=== PATIENT | male | born 1965 | race Caucasian/White ===

== ENCOUNTER 2023-08-13 12:40 | Observation (INO) | payer BC ==
--- NOTE | 2023-08-13 12:59 | ED ---
Chest Pain HPI - General Source: patient, RN notes reviewed Mode of arrival: wheelchair Limitations: no limitations - History of Present Illness MD Complaint: chest pain <Erinn Stock - Last Filed: 08/13/23 12:57> <Samm Kimble - Last Filed: 08/13/23 17:03> - General Chief Complaint: Chest Pain Stated Complaint: Chest Pains Time Seen by Provider: 08/13/23 12:57 - History of Present Illness Initial Comments: Quick Note: This is a 57-year-old male who presents to the emergency department for chest pain. States that it started 5 days ago. Pain is in the right lower side of his chest. He has associated shortness of breath and swelling in his extremities. His father had a heart attack when he was 38. Patient states that he has had cardiac catheterizations and told that they were normal. Denies any history of CHF. He does report a history of cirrhosis. (Erinn Stock) - Related Data Allergies Allergy/AdvReac Type Severity Reaction Status Date / Time No Known Allergies Allergy Verified 08/13/23 12:47 Review of Systems ROS Other: All systems not noted in ROS Statement are negative. <Erinn Stock - Last Filed: 08/13/23 12:57> ROS Other: All systems not noted in ROS Statement are negative. <Samm Kimble - Last Filed: 08/13/23 17:03> ROS Statement: Those systems with pertinent positive or pertinent negative responses have been documented in the HPI. Past Medical History Past Medical History: Coronary Artery Disease (CAD), Heart Failure, Hyperlipidemia, Hypertension Additional Past Medical History / Comment(s): Liver History of Any Multi-Drug Resistant Organisms: None Reported Past Surgical History: Joint Replacement, Orthopedic Surgery Past Psychological History: No Psychological Hx Reported Smoking Status: Current every day smoker Past Alcohol Use History: Occasional Past Drug Use History: None Reported <Erinn Stock - Last Filed: 08/13/23 12:57> General Exam Limitations: no limitations <Erinn Stock - Last Filed: 08/13/23 12:57> General appearance: alert, in no apparent distress Head exam: Present: atraumatic, normocephalic Eye exam: Present: normal appearance, PERRL ENT exam: Present: normal exam Neck exam: Present: normal inspection. Absent: tenderness, meningismus Respiratory exam: Present: rhonchi. Absent: respiratory distress Cardiovascular Exam: Present: normal rhythm, tachycardia GI/Abdominal exam: Present: distended, tenderness Extremities exam: Present: pedal edema, calf tenderness Neurological exam: Present: alert, oriented X3, CN II-XII intact. Absent: motor sensory deficit Psychiatric exam: Present: normal affect, normal mood Skin exam: Present: warm, dry, intact. Absent: cyanosis, diaphoretic <Samm Kimble - Last Filed: 08/13/23 17:03> - General Exam Comments Initial Comments: Visual Physical Exam Vital signs reviewed General: Well-appearing, nontoxic, no acute distress. Head: Normocephalic, atraumatic Eyes: PERRLA, EOMI ENT: Airway patent Chest: Nonlabored breathing Skin: No visual rash, normal skin tone Neuro: Alert and oriented 3 Musculoskeletal: No gross abnormalities (Erinn Stock) Course Vital Signs 08/13/23 08/13/23 12:45 14:24 Temperature 98.1 F Pulse Rate 104 H Respiratory 22 18 Rate Blood Pressure 152/88 149/84 O2 Sat by Pulse 99 Oximetry Chest Pain MDM <Erinn Stock - Last Filed: 08/13/23 12:57> <Samm Kimble - Last Filed: 08/13/23 17:03> - MDM I performed the QuickNote portion of this chart. Signed Erinn Stock PA-C. (Erinn Stock) Was pt. sent in by a medical professional or institution ([facility], DRAIN[facility]ER, urgent care, hospital, or fci...) When possible be specific @ -No Did you speak to anyone other than the patient for history (EMS, parent, family, police, friend...)? What history was obtained from this source @ -No Did you review nursing and triage notes (agree or disagree)? Why? @ -I reviewed and agree with nursing and triage notes Were old charts reviewed (outside hosp., previous admission, EMS record, old EKG, old radiological studies, urgent care reports/EKG's, fci records)? Report findings @ -No old charts were reviewed Differential chest. EKG interpreted by me (3pts min.). @ -EKG: Sinus rhythm rate of 98, DE interval 136, QRS duration 102, QTc [address] segment elevation. X-rays interpreted by me (1pt min.). @ -Chest x-ray negative for acute cardiopulmonary findings. CT interpreted by me (1pt min.). @ -CT chest negative for PE, CT abdomen showing ascites and distended gallbladder U/S interpreted by me (1pt. min.). @ -Sound of the gallbladder has a positive Bermudez sign and distended gallbladder without stones. ReSound of the lower extremities is negative for DVT. What testing was considered but not performed or refused? (CT, X-rays, U/S, labs)? Why? @ -None What meds were considered but not given or refused? Why? @ -None Did you discuss the management of the patient with other professionals (professionals i.e. , PA, DRAINLAYER, lab, RT, psych nurse, high school social studies teacher, health sciences program coordinator, teacher, security officers and guards, rn case manager)? Give summary @ -No Was smoking cessation discussed for >3mins.? @ -No Was critical care preformed (if so, how long)? @ -No Were there social determinants of health that impacted care today? How? (Homelessness, low income, unemployed, alcoholism, drug addiction, transportation, low edu. Level, literacy, decrease access to med. care, assisted, rehab)? @ -No Was there de-escalation of care discussed even if they declined (Discuss DNR or withdrawal of care, Hospice)? DNR status @ -No What co-morbidities impacted this encounter? (DM, HTN, Smoking, COPD, CAD, Cancer, CVA, ARF, Chemo, Hep., AIDS, mental health diagnosis, sleep apnea, morbid obesity)? @ -Holick liver cirrhosis Was patient admitted / discharged? Hospital course, mention meds given and route, prescriptions, significant lab abnormalities, going to OR and other pertinent info. @7-year-old male history of alcoholic liver cirrhosis presenting with diffuse pain and swelling. Does complain of chest pain as well as abdominal pain. He has significant lab abnormalities including a D-dimer of 15. Workup regarding this D-dimer is performed in the emergency room including CT angiography and bilateral lower extremity ultrasound. This is negative for DVT or PE. CT of the abdomen was performed which shows distended gallbladder and ascites this is confirmed on ultrasound. It has been told in the past that he has gallbladder issues. Patient will be diuresed with Lasix he will be kept in observation for consultation with general surgery as well as serial cardiac enzymes. Case discussed with Dr. Camacho who will admit. Undiagnosed new problem with uncertain prognosis? @ -No Drug Therapy requiring intensive monitoring for toxicity (Heparin, Nitro, Insulin, Cardizem)? @ -No Were any procedures done? @ -No Diagnosis/symptom? @ -Edema secondary to cirrhosis, abdominal pain, distended gallbladder, elevated D-dimer Acute, or Chronic, or Acute on Chronic? @On chronic Uncomplicated (without systemic symptoms) or Complicated (systemic symptoms)? @ -Default Side effects of treatment? @ -No Exacerbation, Progression, or Severe Exacerbation? @ -No Poses a threat to life or bodily function? How? (Chest pain, USA, MD, pneumonia, PE, COPD, DKA, ARF, appy, cholecystitis, CVA, Diverticulitis, Homicidal, Suicidal, threat to staff... and all critical care pts) @ yes, Liver failure, cirrhosis (Samm Kimble) Disposition <Erinn Stock - Last Filed: 08/13/23 12:57> Is patient prescribed a controlled substance at d/c from ED?: No Time of Disposition: 17:03 <Samm Kimble - Last Filed: 08/13/23 17:03> Clinical Impression: Atypical chest pain, Abdominal pain, Edema Disposition: ADMITTED IP TO THIS HOSP Condition: Stable Referrals: Nonstaff,Physician [Primary Care Provider] - 1-2 days
[2023-08-13 13:38] LABS: INR 1.1 (<1.2); Partial Thromboplastin Time 25.3 sec (22.0-30.0); Prothrombin Time 12.1 sec (10.0-12.5)
[2023-08-13 13:39] LABS: Basophils # (A) 0.1 k/uL (0-0.2); Basophils % (A) 1 %; Eosinophils # (A) 0.3 k/uL (0-0.7); Eosinophils % (A) 4 %; HCT 37.2 % (39.0-53.0); HGB 12.3 gm/dL (13.0-17.5); Lymphocytes # (A) 2.5 k/uL (1.0-4.8); Lymphocytes % (A) 30 %; MCHC 33.1 g/dL (31.0-37.0); MCV 108.9 fL (80.0-100.0); Macrocytosis Marked; Mean Platelet Volume 8.9; Monocytes % (A) 11 %; Neutrophils # (A) 4.3 k/uL (1.3-7.7); Neutrophils % (A) 51 %; RBC 3.42 m/uL (4.30-5.90); WBC 8.5 k/uL (3.8-10.6)
[2023-08-13 13:40] LABS: ALT 28 U/L (4-49); AST 103 U/L (17-59); African American GFR (CKD) >90 (>60 ml/min/1.73 sqM); Albumin 3.7 g/dL (3.5-5.0); Alkaline Phosphatase 193 U/L (38-126); Anion Gap 7 mmol/L; Blood Urea Nitrogen 12 mg/dL (9-20); Calcium 8.5 mg/dL (8.4-10.2); Carbon Dioxide 22 mmol/L (22-30); Chloride 114 mmol/L (98-107); Glucose 109 mg/dL (74-99); Magnesium 1.7 mg/dL (1.6-2.3); Non-African American GFR(CKD) 83 (>60 ml/min/1.73 sqM); Potassium 3.9 mmol/L (3.5-5.1); Sodium 143 mmol/L (137-145); Total Bilirubin 3.4 mg/dL (0.2-1.3)
[2023-08-13 13:47] LABS: NT-Pro-B-Type Natriuretic Pept 156 pg/mL
[2023-08-13 14:06] LABS: Platelet Count 92 k/uL (150-450)
[2023-08-13 14:07] LABS: Poikilocytosis (M) Present
--- NOTE | 2023-08-13 14:11 | XR ---
EXAMINATION TYPE: XR chest 2V DATE OF EXAM: 08/13/2023 COMPARISON: NONE TECHNIQUE: PA and lateral views submitted. HISTORY: Chest pain FINDINGS: Hyperexpansion correlate for COPD. Heart size normal. Coarsened interstitium. Patchy density in the r ight lower lobe. No evidence of pneumothorax or pleural effusion. IMPRESSION: 1. Mild interstitial coarsening favor bronchitis or chronic interstitial lung disease over venous con gestion. No sizable pleural effusion. Correlate clinically. 2. Patchy right lower lobe atelectasis versus early infiltrate.
[2023-08-13] MEDS: HYDROmorphone 1 MG/ML 1 ML SYRINGE IVP STA (14:25)
--- NOTE | 2023-08-13 15:04 | CT ---
EXAMINATION TYPE: CT abdomen pelvis w con DATE OF EXAM: 08/13/2023 COMPARISON: None HISTORY: CP, elevated D-dimer, bilateral lower extremity swelling. CT DLP: Combined DLP of 2619.4 mGycm Automated exposure control for dose reduction was used. CONTRAST: CT scan of the abdomen pelvis is performed with IV Contrast, patient injected with 100 mL of Isovue 3 70. FINDINGS- LUNG BASES- No significant abnormality is appreciated. LIVER/GB- liver is somewhat lobulated in contour and low in attenuation correlate for underlying he patocellular disease or cirrhosis. Hepatic steatosis in the differential diagnosis. There is a small amount of ascites. Hypodensity involving the dome of the liver too small to characterize The gallbladder is distended with no obvious gallstones. PANCREAS- No gross abnormality is seen. SPLEEN- No gross abnormality is seen. ADRENALS- No gross abnormality is seen. KIDNEYS/BLADDER-no hydronephrosis. Punctate bilateral renal calculi. Hypodense lesions involving the kidneys most likely in the basis of benign cyst. BOWEL- and no obstruction. Appendix not seen exam nondiagnostic for appendicitis given the ascites. Small hiatal hernia. LYMPH NODES- No greater than 1cm abdominal or pelvic lymph nodes are appreciated. OSSEOUS STRUCTURES- multilevel hypertrophic and degenerative change of the spine. Bilateral hip repl acement surgery. OTHER- prominent vascular structure seen in the abdomen and paraesophageal region compatible with va rices. Correlate for portal hypertension. There is stranding in the mesentery which could be related to the ascites. Small amount of fluid is seen in the periumbilical hernia. Similar finding seen invol ving the right inguinal hernia and there is a fat-containing left inguinal hernia. Aorta of normal ca liber with mild atherosclerotic changes. Assessment of pelvis nondiagnostic due to severe metallic artifact. IMPRESSION- 1. A nonobstructing renal calculi. 2. 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 3. Small amount of ascites 4. Distended gallbladder recommend follow-up ultrasound as clinically warranted. 5. Nondiagnostic assessment of the bladder and pelvis due to severe artifact from bilateral hip prost heses.
--- NOTE | 2023-08-13 15:10 | CT ---
EXAMINATION TYPE: CT chest angio for PE DATE OF EXAM: 08/13/2023 COMPARISON: None HISTORY: CP, elevated D-dimer, bilateral lower extremity swelling. CT DLP: Combined DLP of 2619.4 mGycm Automated exposure control for dose reduction was used. CONTRAST: CT Chest for pulmonary embolism performed with with IV Contrast, patient injected with 100 mL of Isov ue 370. FINDINGS: LUNGS: The lungs are grossly clear, there is no concerning parenchymal mass or nodule identified. T here is no pleural effusion or pneumothorax seen. The tracheobronchial tree is patent. MEDIASTINUM: There is limited enhancement of the pulmonary artery and its branches, there is no CT ev idence for central pulmonary embolism. There are no greater than 1 cm hilar or mediastinal lymph nod es. No pericardial effusion is seen. Heart is enlarged. There is a small pericardial effusion. Ao rta demonstrates no significant atherosclerotic changes. Main pulmonary trunk is dilated which can be related to pulmonary arterial hypertension. OTHER: Degenerative changes of the spine. There is ascites, a prominent liver and lobulated contour suggestive of underlying liver disease and cirrhosis. Spleen measures 12 cm at the upper limits of no rmal. Gallbladder distended. Small hiatal hernia. Hypodensities in the liver too small to characteriz e. 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 Correlate for portal hypertension. IMPRESSION: 1. No CT evidence of central pulmonary embolism. Third order and distal branches are limited and nond iagnostic. See abdominal CT report. Follow-up recommendations for incidental pulmonary nodules are per [employer] or [employer].
--- NOTE | 2023-08-13 15:55 | US ---
EXAMINATION TYPE: US venous doppler duplex LE BI DATE OF EXAM: 08/13/2023 3:40 PM COMPARISON: NONE CLINICAL INDICATION: Male, 57 years old with history of leg swelling pos dimer; Swelling, elevated D- Dimer SIDE PERFORMED: Bilateral TECHNIQUE: The lower extremity deep venous system is examined utilizing real time linear array sonog anita with graded compression, doppler sonography and color-flow sonography. VESSELS IMAGED: Common Femoral Vein Deep Femoral Vein Greater Saphenous Vein * Femoral Vein Popliteal Vein Small Saphenous Vein * Proximal Calf Veins (* superficial vessels) Right Leg: Negative for DVT Left Leg: Negative for DVT IMPRESSION: 1. No diagnostic evidence of DVT
--- NOTE | 2023-08-13 15:58 | US ---
EXAMINATION TYPE: US gallbladder DATE OF EXAM: 08/13/2023 COMPARISON: Same day CT CLINICAL INDICATION: Male, 57 years old with history of RUQ ab pain; ABD pain TECHNIQUE: Multiple sonographic images of the right upper quadrant are obtained. FINDINGS: EXAM MEASUREMENTS: Liver Length: 18.0 cm Gallbladder Wall: 0.3 cm CBD: 0.7 cm Right Kidney: 11.5 x 4.6 x 5.1 cm CASE MANAGEMENT ASSOCIATE NOTES: Pancreas: Obscured by bowel gas Liver: Upper limits of normal for size, difficult to penetrate, heterogeneous Gallbladder: Distended with multiple folds, wall thickness upper limits of normal Evidence for sonographic Bermudez's sign: Yes CBD: wnl Right Kidney: No evidence of hydro, cyst lower pole= 4.7 x 2.6 x 3.5 cm Small amount of ascites present IMPRESSION: 1. Small amount of ascites with hepatomegaly correlate for underlying hepatocellular disease or hepat ic steatosis. 2. Common bile duct slightly dilated 7 mm distal CBD abnormality not excluded. 3. Gallbladder is distended with multiple folds no obvious gallstones. Gallbladder wall the upper headley its of normal in thickness. There is a positive sonographic Bermudez's sign.
[2023-08-13] MEDS ORDERED: ONDANSETRON 4 MG/2 ML VIAL IVP PRN (16:57)
[2023-08-13] MEDS ORDERED: HYDROmorphone 0.5 MG/0.5 ML SYRINGE IVP PRN (16:57)
[2023-08-13] MEDS ORDERED: NALOXONE 0.4 MG/ML 1 ML VIAL IV PRN (16:57)
[2023-08-13] MEDS: ASPIRIN 325 MG TAB PO STA (17:48)
[2023-08-13] MEDS: FUROSEMIDE 10 MG/ML 4 ML VIAL IV STA (17:49)
[2023-08-13] MEDS ORDERED: LORazepam 2 MG/ML INJ IV PRN ×3 (17:52)
[2023-08-13] MEDS: HYDROmorphone 1 MG/ML 1 ML SYRINGE IVP PRN (18:47)
[2023-08-13] MEDS: FUROSEMIDE 10 MG/ML 4 ML VIAL IV SCH (23:00)
[2023-08-14 07:53] VITALS: RESP 16
--- NOTE | 2023-08-14 07:56 | P.CON ---
Consult Note - . Consult date: 08/13/23 Assessment/Plan:: This is a 57-year-old male who presents to the emergency department for chest pain. States that it started 5 days ago. Pain is in the right lower side of his chest. He has associated shortness of breath and swelling in his extremiti es. His father had a heart attack when he was 39. Patient states that he has had cardiac catheterizations and told that they were normal. Denies any history of CHF. He does report a history of cirrhosis. He had an abdominal US which showed a distended Gallbladder as well without gallstones. Review of Systems ROS Other: All systems not noted in ROS Statement are negative. Past Medical History Past Medical History: Coronary Artery Disease (CAD), Heart Failure, Hyperlipidemia, Hypertension Additional Past Medical History / Comment(s): Liver History of Any Multi-Drug Resistant Organisms: None Reported Past Surgical History: Joint Replacement, Orthopedic Surgery Past Psychological History: No Psychological Hx Reported Smoking Status: Current every day smoker Past Alcohol Use History: Occasional Past Drug Use History: None Reported General Exam Limitations: no limitations General appearance: alert, in no apparent distress Head exam: Present: atraumatic, normocephalic Eye exam: Present: normal appearance, PERRL ENT exam: Present: normal exam Neck exam: Present: normal inspection. Absent: tenderness, meningismus Respiratory exam: Present: rhonchi. Absent: respiratory distress Cardiovascular Exam: Present: normal rhythm, tachycardia GI/Abdominal exam: Present: distended, tenderness Extremities exam: Present: pedal edema, calf tenderness Neurological exam: Present: alert, oriented X3, CN II-XII intact. Absent: motor sensory deficit Psychiatric exam: Present: normal affect, normal mood Skin exam: Present: warm, dry, intact. Absent: cyanosis, diaphoretic Vital signs reviewed General: Well-appearing, nontoxic, no acute distress. Head: Normocephalic, atraumatic Eyes: PERRLA, EOMI ENT: Airway patent Chest: Nonlabored breathing Skin: No visual rash, normal skin tone Neuro: Alert and oriented 3 Musculoskeletal: No gross abnormalities 57 year old male with Cirrhosis and distended GB on US - No acute surgical intervention. Low suspicion for GB disease - ADAT - Medical Management per Medicine team
[2023-08-14 11:18] LABS: ALT 28 U/L (10-49); AST 95 U/L (14-35); Albumin 3.6 g/dL (3.8-4.9); Alkaline Phosphatase 165 U/L (41-126); BUN/Creat Ratio 9.25 Ratio (12.00-20.00); Blood Urea Nitrogen 11.1 mg/dL (9.0-27.0); Calcium 8.5 mg/dL (8.7-10.3); Chloride 107 mmol/L (96-109); Glucose 97 mg/dL (70-110); Sodium 143 mmol/L (135-145); Total Bilirubin 3.3 mg/dL (0.3-1.2); Total Protein 6.6 g/dL (6.2-8.2)
--- NOTE | 2023-08-14 11:46 | P.HPIM ---
History of Present Illness 57-year-old male came in with complaints of right upper quadrant abdominal pain and lower chest pain. Patient underwent extensive evaluation which showed mild gallbladder distention but no significant thickening or gallstones, was monet luated by general surgery they are not recommending any surgery or antibiotics at this time. Patient does not have any fever chills patient wanted to go home patient has alcohol abuse history drinks about half a pint a pint of alcohol every day last drink was 2 days ago patient presently is not having withdrawals patient denies any withdrawals in the past and patient has elevated MCV so is secondary to chronic alcoholism patient wanted to go home although patient has extensive bilateral lower extremity edema secondary to possible cirrhosis and CT and ultrasound of the gallbladder did show liver disease. Patient INR is 1.1. Patient had a CT angio of the chest because of tachycardia and lower chest pain nonpleuritic. patient underwent CT angio of the chest which did not show any pulmonary embolism. Patient does not have any significant pain at this time. REVIEW OF SYSTEMS: CONSTITUTIONAL: No fever, no malaise, no fatigue. HEENT: No recent visual problems or hearing problems. Denied any sore throat. CARDIOVASCULAR: No chest pain, orthopnea, PND, no palpitations, no syncope. PULMONARY: No shortness of breath, no cough, no hemoptysis. GASTROINTESTINAL: As mentioned in HPI NEUROLOGICAL: No headaches, no weakness, no numbness. HEMATOLOGICAL: Denies any bleeding or petechiae. GENITOURINARY: Denies any burning micturition, frequency, or urgency. MUSCULOSKELETAL/RHEUMATOLOGICAL: Denies any joint pain, swelling, or any muscle pain. ENDOCRINE: Denies any polyuria or polydipsia. The rest of the 14-point review of systems is negative. PHYSICAL EXAMINATION: GENERAL: The patient is alert and oriented x3, not in any acute distress. Well developed, well nourished. HEENT: Pupils are round and equally reacting to light. EOMI. No scleral icterus. No conjunctival pallor. Normocephalic, atraumatic. No pharyngeal erythema. No thyromegaly. CARDIOVASCULAR: S1 and S2 present. No murmurs, rubs, or gallops. PULMONARY: Chest is clear to auscultation, no wheezing or crackles. ABDOMEN: Soft, nontender, nondistended, normoactive bowel sounds. No palpable organomegaly. MUSCULOSKELETAL: No joint swelling or deformity. EXTREMITIES: No cyanosis, clubbing, or pedal edema. NEUROLOGICAL: Gross neurological examination did not reveal any focal deficits. SKIN: No rashes. Assessment and plan -Abdominal pain resolved at this time, may be a passed gallstone patient will n ot require any antibiotics patient had a distended stone no surgical intervention is being planned at this time patient does not have any symptoms of cholecystitis will be discharged today. There is a possibility of gastritis contributing to the symptoms. Unfortunately because of his varices I cannot give NSAIDs and I cannot give high doses of acetaminophen because of his liver failure and tramadol can decrease the seizure threshold if he has withdrawals. Because of these reasons I will give a short course less frequent and [place]idden for pain -Bilateral lower extremity edema secondary to cirrhosis and patient will be discharged on Lasix 40 mg daily along with 50 mg of Aldactone and patient is taking losartan 100 mg which will be cut down to 50 mg hydrochlorothiazide will be discontinued. -Chronic alcohol abuse counseling was provided patient is willing to quit but wanted to go home patient is insisting on going home. -Alcohol withdrawal patient never had any withdrawals patient will be discharged on short taper of Librium and patient was instructed not to drink alcohol on Librium -Hypertension Patient will be discharged today to follow-up with PCP and repeat basic metabolic profile as outpatient Past Medical History Past Medical History: Coronary Artery Disease (CAD), Heart Failure, Hyperlipidemia, Hypertension Additional Past Medical History / Comment(s): Liver cirrhosis, multiple PE's History of Any Multi-Drug Resistant Organisms: None Reported Past Surgical History: Joint Replacement, Orthopedic Surgery Additional Past Surgical History / Comment(s): pins in foot, prosthetic hips, knee sx Past Psychological History: No Psychological Hx Reported Smoking Status: Current every day smoker Past Alcohol Use History: Occasional Past Drug Use History: None Reported Medications and Allergies Home Medications Medication Instructions Recorded Confirmed Type Furosemide [Lasix] 40 mg PO DAILY #30 tablet 08/14/23 Rx Losartan [Cozaar] 50 mg PO DAILY #30 tab 08/14/23 Rx Spironolactone [Aldactone] 50 mg PO DAILY #30 tab 08/14/23 Rx Allergies Allergy/AdvReac Type Severity Reaction Status Date / Time No Known Allergies Allergy Verified 08/13/23 17:36 Physical Exam Vitals: Vital Signs Temp Pulse Pulse Resp BP BP Pulse Ox 08/14/23 07:00 98.1 F 101 H 16 144/83 94 L 08/14/23 02:00 97.6 F 68 15 137/79 94 L 08/13/23 19:21 97.7 F 66 15 144/84 96 08/13/23 18:37 97.7 F 103 H 16 158/92 97 08/13/23 17:46 97.7 F 103 H 18 133/73 96 08/13/23 14:24 18 149/84 08/13/23 12:45 98.1 F 104 H 22 152/88 99 Intake and Output 08/13/23 08/14/23 08/14/23 22:59 06:59 14:59 Other: Voiding Method Toilet Toilet # Voids 2 1 Weight 104.326 kg Results CBC & Chem 7: 08/13/23 13:18 08/14/23 04:38 Labs: Abnormal Lab Results - Last 24 Hours (Table) 08/13/23 08/13/23 08/13/23 Range/Units 13:18 13:18 13:18 RBC 3.42 L (4.30-5.90) m/uL Hgb 12.3 L (13.0-17.5) gm/dL Hct 37.2 L (39.0-53.0) % MCV 108.9 H (80.0-100.0) fL MCH 36.0 H (25.0-35.0) pg RDW 16.0 H (11.5-15.5) % Plt Count 92 L (150-450) k/uL Macrocytosis Marked A D-Dimer 15.74 H (<0.60) mg/L FEU Chloride 114 H (98-107) mmol/L BUN/Creatinine Ratio (12.00-20.00) Ratio Glucose 109 H (74-99) mg/dL Calcium (8.7-10.3) mg/dL Total Bilirubin 3.4 H (0.2-1.3) mg/dL AST 103 H (17-59) U/L Alkaline Phosphatase 193 H (38-126) U/L Albumin (3.8-4.9) g/dL Albumin/Globulin Ratio (1.60-3.17) Ratio 08/14/23 Range/Units 04:38 RBC (4.30-5.90) m/uL Hgb (13.0-17.5) gm/dL Hct (39.0-53.0) % MCV (80.0-100.0) fL MCH (25.0-35.0) pg RDW (11.5-15.5) % Plt Count (150-450) k/uL Macrocytosis D-Dimer (<0.60) mg/L FEU Chloride (98-107) mmol/L BUN/Creatinine Ratio 9.25 L (12.00-20.00) Ratio Glucose (74-99) mg/dL Calcium 8.5 L (8.7-10.3) mg/dL Total Bilirubin 3.3 H (0.2-1.3) mg/dL AST 95 H (17-59) U/L Alkaline Phosphatase 165 H (38-126) U/L Albumin 3.6 L (3.8-4.9) g/dL Albumin/Globulin Ratio 1.20 L (1.60-3.17) Ratio
--- NOTE | 2023-08-14 11:52 | P.DS ---
Providers Date of admission: 08/13/23 16:57 Attending physician: Sergye Camacho Consults: 08/13/23 16:57 Consult Physician Routine Consulting Provider: Bob Turner Consult Reason/Comments: No pain, distended gallbladder Do you want consulting provider notified?: Yes Primary care physician: Physician Nonstaff Hospital Course: 57-year-old male came in with complaints of right upper quadrant abdominal pain and lower chest pain. Patient underwent extensive evaluation which showed mild gallbladder distention but no significant thickening or gallstones, was evaluated by general surgery they are not recommending any surgery or antibiotics at this time. Patient does not have any fever chills patient wanted to go home patient has alcohol abuse history drinks about half a pint a pint of alcohol every day last drink was 2 days ago patient presently is not having withdrawals patient denies any withdrawals in the past and patient has elevated MCV so is secondary to chronic alcoholism patient wanted to go home although patient has extensive bilateral lower extremity edema secondary to possible cirrhosis and CT and ultrasound of the gallbladder did show liver disease. Patient INR is 1.1. Patient had a CT angio of the chest because of tachycardia and lower chest pain nonpleuritic. patient underwent CT angio of the chest which did not show any pulmonary embolism. Patient does not have any significant pain at this time. PHYSICAL EXAMINATION: GENERAL: The patient is alert and oriented x3, not in any acute distress. Well developed, well nourished. HEENT: Pupils are round and equally reacting to light. EOMI. No scleral icterus. No conjunctival pallor. Normocephalic, atraumatic. No pharyngeal erythema. No thyromegaly. CARDIOVASCULAR: S1 and S2 present. No murmurs, rubs, or gallops. PULMONARY: Chest is clear to auscultation, no wheezing or crackles. ABDOMEN: Soft, nontender, nondistended, normoactive bowel sounds. No palpable organomegaly. MUSCULOSKELETAL: No joint swelling or deformity. EXTREMITIES: No cyanosis, clubbing, or pedal edema. NEUROLOGICAL: Gross neurological examination did not reveal any focal deficits. SKIN: No rashes. Assessment and plan -Abdominal pain resolved at this time, may be a passed gallstone patient will not require any antibiotics patient had a distended stone no surgical intervention is being planned at this time patient does not have any symptoms of cholecystitis will be discharged today. There is a possibility of gastritis contributing to the symptoms. Unfortunately because of his varices I cannot give NSAIDs and I cannot give high doses of acetaminophen because of his liver failure and tramadol can decrease the seizure threshold if he has withdrawals. Because of these reasons I will give a short course less frequent and Jackson for pain -Bilateral lower extremity edema secondary to cirrhosis and patient will be discharged on Lasix 40 mg daily along with 50 mg of Aldactone and patient is taking losartan 100 mg which will be cut down to 50 mg hydrochlorothiazide will be discontinued. -Chronic alcohol abuse counseling was provided patient is willing to quit but wanted to go home patient is insisting on going home. -Alcohol withdrawal patient never had any withdrawals patient will be discharged on short taper of Librium and patient was instructed not to drink alcohol on Librium -Hypertension Patient will be discharged today to follow-up with PCP and repeat basic metabolic profile as outpatient Patient Condition at Discharge: Stable Plan - Discharge Summary New Discharge Prescriptions: New Spironolactone [Aldactone] 50 mg PO DAILY #30 tab HYDROcodone/APAP 5-325MG [Jackson 5-325] 1 tab PO Q6HR PRN 3 Days #12 tab PRN Reason: Pain Pantoprazole [Protonix] 40 mg PO DAILY 7 Days #7 tab Losartan [Cozaar] 50 mg PO DAILY #30 tab Furosemide [Lasix] 40 mg PO DAILY #30 tablet chlordiazePOXIDE HCl [Librium] 25 mg PO DIRECTED 4 Days #7 capsule Discontinued Losartan/Hydrochlorothiazide [Losartan-Hctz 100-25 mg Tab] 1 tab PO DAILY Discharge Medication List Furosemide [Lasix] 40 mg PO DAILY #30 tablet 08/14/23 [Rx] HYDROcodone/APAP 5-325MG [Jackson 5-325] 1 tab PO Q6HR PRN 3 Days #12 tab 08/14/23 [Rx] Losartan [Cozaar] 50 mg PO DAILY #30 tab 08/14/23 [Rx] Pantoprazole [Protonix] 40 mg PO DAILY 7 Days #7 tab 08/14/23 [Rx] Spironolactone [Aldactone] 50 mg PO DAILY #30 tab 08/14/23 [Rx] chlordiazePOXIDE HCl [Librium] 25 mg PO DIRECTED 4 Days #7 capsule 08/14/23 [Rx] Follow up Appointment(s)/Referral(s): Maricel Henderson MD [STAFF PHYSICIAN] - 1 Week Nonstaff,Physician [Primary Care Provider] - 3 Days Ambulatory/Diagnostic Orders: Basic Metabolic Panel [LAB.AMB] Time Frame: 3 Days, Location: None Selected Discharge Disposition: HOME SELF-CARE
[2023-08-14 12:25] LABS: Basophils # (A) 0.08 X 10*3/uL (0.00-0.10); Basophils % (A) 0.9 %; Eosinophils # (A) 0.29 X 10*3/uL (0.04-0.35); Eosinophils % (A) 3.2 %; HCT 33.4 % (39.6-50.0); HGB 11.4 g/dL (13.0-17.0); Lymphocytes # (A) 2.66 X 10*3/uL (0.90-5.00); Lymphocytes % (A) 29.5 %; MCH 35.6 pg (27.0-32.0); MCHC 34.1 g/dL (32.0-37.0); MCV 104.4 FL (80.0-97.0); Mean Platelet Volume 11.3 FL (9.5-12.2); Monocytes # (A) 1.34 X 10*3/uL (0.20-1.00); Monocytes % (A) 14.8 %; NRBC Per 100 WBC 0 X 10*3/uL (0.00-0.01); Neutrophils # (A) 4.63 X 10*3/uL (1.80-7.70); Neutrophils % (A) 51.3 %; Platelet Count 95 X 10*3/uL (140-440); RDW 17.3 % (11.5-14.5); Target Cells 2+; WBC 9.03 X 10*3/uL (4.50-10.00)
[2023-08-14] MEDS: MAGNESIUM SULFATE-D5W PMX 1 GM in DEXTROSE/WATER 1 100ML.BAG IVPB SCH (13:22)
[2023-08-14 14:43] VITALS: BP 148/88; PULSE 100; TEMP 97.8
== END 2023-08-14 15:08 | disposition home or self-care (01) ==
LOC: EC 12:40 → 6NMEDSUR 16:57
PROVIDERS: ADMIT Internal Medicine; ATTEND Internal Medicine
DX: R07.89 Other chest pain (principal); R10.11 Right upper quadrant pain; I25.10 Atherosclerotic heart disease of native coronary artery without angina pectoris; E78.5 Hyperlipidemia, unspecified; I11.0 Hypertensive heart disease with heart failure; I50.9 Heart failure, unspecified; F17.210 Nicotine dependence, cigarettes, uncomplicated; K74.60 Unspecified cirrhosis of liver; F10.239 Alcohol dependence with withdrawal, unspecified; Z82.49 Family history of ischemic heart disease and other diseases of the circulatory system; Z79.899 Other long term (current) drug therapy
CPT/HCPCS: 96376; 96366 ×2; 96365; 96375; 99285; 36415; 93005; 85379; 83880; 80053 ×2; 83735; 84484; 85025 ×2; 85610; 85730; 71046; 76705; 93970; 71275; 74177; G0378 ×2; J1940 ×2; J1170 ×2; J3475; Q9967